=== PATIENT | female | born 1965 | race Caucasian/White ===

== ENCOUNTER 2020-02-26 17:01 | Emergency (ER) | payer OTHER ==
[~2020-02-26] VITALS: Ht 160 cm; Wt 64.4 kg
[2020-02-26] MEDS ORDERED: LEVO-T50 MCG PO (17:50)
[2020-02-26 17:51] LABS: URINE BILIRUBIN NEGATIVE (Negative); URINE BLOOD TRACE (Negative); URINE CLARITY CLEAR; URINE COLOR YELLOW; URINE GLUCOSE-RANDOM NEGATIVE (Negative); URINE KETONES NEGATIVE (Negative); URINE LEUKOCYTES-REFLEX NEGATIVE (Negative); URINE NITRITE-REFLEX NEGATIVE (Negative); URINE PROTEIN NEGATIVE (Negative); URINE UROBILINOGEN 0.2 E.U./dl (0.2-1.0)
[2020-02-26] MEDS ORDERED: CETIRIZINE HCL5 MG PO (17:51)
[2020-02-26 18:10] LABS: ABSOLUTE LYMPHOCYTES 1.5 thou/uL (0.8-5.3); ABSOLUTE MONOCYTES 0.3 thou/uL (0.0-1.2); ABSOLUTE NEUTROPHILS 4.3 thou/uL (1.6-8.1); BASOPHILS 0.5 %; EOSINOPHILS 0.7 %; HEMATOCRIT 43.8 % (37.0-47.0); HEMOGLOBIN 14.7 gm/dL (12.0-15.0); MCH 29.1 pg (26.0-34.0); MCHC 33.7 g/dL (28.0-37.0); MCV 86.3 fL (80.0-100.0); MONOCYTES 4.8 %; NUCLEATED RBCS 0 /100WBC; PLATELET COUNT* 228 thou/uL (150-400); RBC 5.07 mil/uL (4.20-5.00); RDW-CV 13.4 % (10.5-14.5); WBC 6.2 thou/uL (4.0-11.0)
[2020-02-26 18:18] LABS: CALCIUM 8.9 mg/dL (8.5-10.1); CREATININE 0.8 mg/dL (0.6-1.3); POTASSIUM 3.2 mmol/L (3.5-5.1)
[2020-02-26 18:23] LABS: ALBUMIN 4.3 g/dL (3.4-5.0); TOTAL BILIRUBIN 0.6 mg/dL (<0.1-1.0); TOTAL PROTEIN 7.9 g/dL (6.4-8.2)
[2020-02-26 19:30] VITALS: BP 153/90
--- NOTE | 2020-02-27 13:36 | EKG ---
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
== END 2020-02-26 19:30 | disposition home or self-care (01) ==
LOC: M.ERS 17:01
PROVIDERS: Physician Assistant
DX: I10 Essential (primary) hypertension (principal); Z91.040 Latex allergy status; Z88.0 Allergy status to penicillin; Z88.1 Allergy status to other antibiotic agents; Z88.8 Allergy status to other drugs, medicaments and biological substances

== ENCOUNTER → 2020-03-25 | Outpatient (CLI) | payer OTHER ==
[~2020-03-25] MED LIST: CETIRIZINE HCL5 MG PO; LEVO-T50 MCG PO
== END ==
LOC: M.ULTRA 10:00
PROVIDERS: ATTEND Family Medicine
DX: I10 Essential (primary) hypertension (principal); I99.8 Other disorder of circulatory system

== ENCOUNTER 2020-04-05 23:37 | Emergency (ER) | payer OTHER ==
[~2020-04-05] VITALS: Ht 160 cm; Wt 63.0 kg
[2020-04-05] MEDS ORDERED: METFORMIN HCL500 M3 PO (23:45)
[2020-04-05] MEDS ORDERED: SINGULAIR 10 MG10 M1 PO (23:45)
[2020-04-05] MEDS ORDERED: PROTONIX40 M2 PO (23:45)
[2020-04-05] MEDS ORDERED: MELOXICAM15 MG PO (23:46)
[2020-04-06 00:37] LABS: ABSOLUTE EOSINOPHILS 0.1 thou/uL (0.0-0.7); ABSOLUTE LYMPHOCYTES 1.4 thou/uL (0.8-5.3); ABSOLUTE MONOCYTES 0.3 thou/uL (0.0-1.2); ABSOLUTE NEUTROPHILS 4.4 thou/uL (1.6-8.1); BASOPHILS 0.5 %; EOSINOPHILS 0.9 %; HEMATOCRIT 40.7 % (37.0-47.0); HEMOGLOBIN 13.8 gm/dL (12.0-15.0); LYMPHOCYTES 23.1 %; MCH 29.3 pg (26.0-34.0); MCHC 33.8 g/dL (28.0-37.0); MCV 86.4 fL (80.0-100.0); MONOCYTES 5.4 %; MPV 9.1 fl. (7.2-11.1); NUCLEATED RBCS 0 /100WBC; PLATELET COUNT* 205 thou/uL (150-400); POLYS 70.1 %; RBC 4.71 mil/uL (4.20-5.00); RDW-CV 13.6 % (10.5-14.5); WBC 6.2 thou/uL (4.0-11.0)
[2020-04-06 00:42] LABS: CALCIUM 8.8 mg/dL (8.5-10.1); CREATININE 0.9 mg/dL (0.6-1.3); POTASSIUM 3.4 mmol/L (3.5-5.1)
[2020-04-06 00:43] LABS: APTT 25.9 Seconds (25.0-31.3); PROTIME 10.7 Seconds (9.20-11.50)
[2020-04-06 00:47] LABS: ALBUMIN 4.1 g/dL (3.4-5.0); TOTAL BILIRUBIN 0.4 mg/dL (<0.1-1.0); TOTAL PROTEIN 7.7 g/dL (6.4-8.2)
[2020-04-06 03:03] VITALS: BP 152/79
--- NOTE | 2020-04-06 13:24 | EKG ---
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1965 Requested By: Sheree Milton Order Number: [id number] MD: John Curran Measurements Intervals [place] Rate: 71 P: 77 [place]: 157 QRS: 51 QRSD: 91 T: 28 QT: 419 QTc: 456 Interpretive Statements Sinus rhythm Consider left ventricular hypertrophy Compared to ECG 02/26/2020 18:08:11 No significant changes Electronically Signed On 04-06-2020 13:24:49 CDT by John Curran [email or web address] <ELECTRONICALLY SIGNED> By: John Curran MD, [facility] 04/06/20 1324 2341 [id number] John Curran MD, [facility] /EPI
== END 2020-04-06 03:03 | disposition home or self-care (01) ==
LOC: M.ERS 23:37
PROVIDERS: Personal Emergency Response Attendant
DX: I16.0 Hypertensive urgency (principal); F41.1 Generalized anxiety disorder; I73.00 Raynaud's syndrome without gangrene; E03.9 Hypothyroidism, unspecified; E11.9 Type 2 diabetes mellitus without complications; Z88.1 Allergy status to other antibiotic agents; Z91.040 Latex allergy status; Z88.0 Allergy status to penicillin; Z88.8 Allergy status to other drugs, medicaments and biological substances; Z79.899 Other long term (current) drug therapy

== ENCOUNTER 2020-05-09 20:35 | Emergency (ER) | payer OTHER ==
[~2020-05-09] VITALS: Ht 160 cm; Wt 61.7 kg
[~2020-05-09 20:35] MED LIST changes: +MELOXICAM15 MG PO; +METFORMIN HCL500 M3 PO; +PROTONIX40 M2 PO; +SINGULAIR 10 MG10 M1 PO
[2020-05-09 21:33] LABS: ABSOLUTE EOSINOPHILS 0.1 thou/uL (0.0-0.7); ABSOLUTE LYMPHOCYTES 0.8 thou/uL (0.8-5.3); ABSOLUTE MONOCYTES 0.4 thou/uL (0.0-1.2); ABSOLUTE NEUTROPHILS 5.9 thou/uL (1.6-8.1); BASOPHILS 0.3 %; EOSINOPHILS 0.8 %; HEMATOCRIT 40.1 % (37.0-47.0); HEMOGLOBIN 13.3 gm/dL (12.0-15.0); LYMPHOCYTES 11.4 %; MCH 28.7 pg (26.0-34.0); MCHC 33.3 g/dL (28.0-37.0); MCV 86.4 fL (80.0-100.0); MONOCYTES 5.1 %; MPV 8.7 fl. (7.2-11.1); NUCLEATED RBCS 0 /100WBC; PLATELET COUNT* 205 thou/uL (150-400); POLYS 82.4 %; RBC 4.64 mil/uL (4.20-5.00); RDW-CV 13.4 % (10.5-14.5); WBC 7.2 thou/uL (4.0-11.0)
[2020-05-09 21:39] LABS: CREATININE 0.8 mg/dL (0.6-1.3); POTASSIUM 3.4 mmol/L (3.5-5.1)
[2020-05-09 21:44] LABS: ALBUMIN 3.9 g/dL (3.4-5.0); TOTAL BILIRUBIN 0.6 mg/dL (<0.1-1.0); TOTAL PROTEIN 7.5 g/dL (6.4-8.2)
[2020-05-09] MEDS ORDERED: PHENERGAN 25 MG25 M1 PO (22:17)
[2020-05-09 22:29] VITALS: BP 125/73
== END 2020-05-09 22:31 | disposition home or self-care (01) ==
LOC: M.ERS 20:35
PROVIDERS: Nurse Practitioner Family
DX: R51.9 Headache, unspecified (principal); T46.3X5A Adverse effect of coronary vasodilators, initial encounter; R11.2 Nausea with vomiting, unspecified; I10 Essential (primary) hypertension; Z88.6 Allergy status to analgesic agent; Z88.1 Allergy status to other antibiotic agents; Z91.040 Latex allergy status; Z88.0 Allergy status to penicillin; Y92.89 Other specified places as the place of occurrence of the external cause

== ENCOUNTER → 2020-06-29 | Outpatient (CLI) | payer OTHER ==
[~2020-06-29] MED LIST changes: +PHENERGAN 25 MG25 M1 PO
[2020-06-29 13:22] LABS: ALBUMIN 3.8 g/dL (3.4-5.0); CALCIUM 8.5 mg/dL (8.5-10.1); CREATININE 0.7 mg/dL (0.6-1.3); POTASSIUM 3.8 mmol/L (3.5-5.1); TOTAL BILIRUBIN 0.4 mg/dL (<0.1-1.0)
== END ==
LOC: M.LAB 11:53
PROVIDERS: ATTEND Registered Nurse
DX: I10 Essential (primary) hypertension (principal)

== ENCOUNTER → 2020-08-15 | Outpatient (CLI) | payer OTHER | LOC: M.ULTRA 10:25 | PROVIDERS: ATTEND Family Medicine | DX: N95.0 Postmenopausal bleeding (principal); N88.8 Other specified noninflammatory disorders of cervix uteri; R63.5 Abnormal weight gain ==